=== PATIENT | male | born 1995 | race African-American/Black ===

== ENCOUNTER 2024-11-18 16:17 | Emergency (ER) | payer OTHER ==
[~2024-11-18] VITALS: Ht 180.3 cm; Wt 79.5 kg
[2024-11-18 21:43] VITALS: BP 146/92; PULSE 72; RESP 18; TEMP 98.5; O2SAT 98
[2024-11-18] MEDS: ACETAMINOPHEN 500 MG TABLET PO ONE (22:54)
== END 2024-11-18 23:06 ==
LOC: EMS 16:26
DX: S06.0X0A Concussion without loss of consciousness, initial encounter (principal); H53.8 Other visual disturbances; J45.909 Unspecified asthma, uncomplicated; E78.00 Pure hypercholesterolemia, unspecified; F20.9 Schizophrenia, unspecified; W01.0XXA Fall on same level from slipping, tripping and stumbling without subsequent striking against object, initial encounter; Y93.89 Activity, other specified; Y92.89 Other specified places as the place of occurrence of the external cause; Y99.8 Other external cause status
CPT/HCPCS: 70450; 99284